=== PATIENT | female | born 1960 | race Caucasian/White ===

== ENCOUNTER 2017-03-04 11:55 | Outpatient (CLI) | payer MEDICARE ==
--- NOTE | 2017-03-04 15:36 | CT ---
CT OF CHEST PERFORMED WITHOUT CONTRAST ENHANCEMENT: HISTORY: Followup of pulmonary nodule. COMPARISON: PET scan examination 07/04/14 as well as 10/06/15. Also, CT chest examinations of 09/20/14, 09/20/15, , and 09/04/16. Review is also made of a previous lung biopsy. FINDINGS: The ground-glass opacity within the left lower lobe is slightly denser in appearance as compared to the previous 2 examinations which may indicate there is an early semisolid component to this. It is difficult to measure but it probably measures 5 mm in short axis dimension. There is a stable appr oximately 2-3 nodular density on axial image 40 within the left lung base. The ill-defined soft tissue nodule within the right lower lobe is somewhat difficult to accurately d efine the margins. The best attempt to simulate the previous measurements show this lesion to measu re approximately 19 mm AP x 21 mm in transverse dimension which represents a slight interval increas e in size. There is a tiny area of ground-glass nodularity adjacent to the major fissure in the rig ht lung axial image 27 which is stable as compared to the prior examination and a minimal area of gr ound-glass density seen on axial image 24 in the posterior segment of the right upper lobe also stab le. There is no significant mediastinal or hilar lymphadenopathy. There is no significant axillary adenopathy seen. Visualized liver parenchyma shows no focal abnormalities. There is a hypodensity within the right k idney which is stable and probably represents a cyst. There is also a nonobstructing punctate right renal calculus present. The right and left adrenal glands are normal. IMPRESSION: 1. Very slight interval increase in size of the right lower lobe ill-defined nodular density. This has been previously biopsied. 2. Small ground-glass opacity within the left lower lobe shows subtle increase in overall density a s compared to the prior exam. Other findings appear essentially stable. POS: [facility]
== END 2017-03-04 11:56 | disposition home or self-care (01) ==
LOC: CT 11:55
PROVIDERS: ATTEND Internal Medicine Critical Care Medicine
DX: R91.1 Solitary pulmonary nodule (principal); R91.8 Other nonspecific abnormal finding of lung field
CPT/HCPCS: 71250

== ENCOUNTER 2017-03-31 12:00 | Outpatient (CLI) | payer MEDICARE ==
--- NOTE | 2017-04-01 10:47 | PET ---
NUCLEAR MEDICINE FDG PET CT (Positron Emission Tomography) DATE: 03/31/2017 HISTORY: A 56-year-old female with growing right lower lobe solitary pulmonary mass. Dr. Morales discussed the findings by telephone with Dr. Platt at 10:06 a.m. on 04/01/2017. COMPARISON: 10/06/2015 TECHNIQUE: IV injection F-18 Fluorodeoxyglucose (FDG) dose: 10.9 mCi PET and attenuation-correction CT performed from skull base to proximal thighs. FINDINGS: SUV (standard uptake value) numbers given are maximum SUV's: The enlarging lesion in the posterobasilar segment of the right lower lobe, which was previously not hypermetabolic (prior SUV 2.3), is now hypermetabolic (current SUV 5.2). There is no abnormal hypermetabolic activity elsewhere in the chest (including mediastinum and edgard) , neck, abdomen, or pelvis. IMPRESSION: 1. The previously nonhypermetabolic right lower lobe pulmonary mass has now become hypermetabolic. 2. One possibility is that this may have previously been a low grade primary malignancy, such as br onchoalveolar cell carcinoma, which has now become higher grade tumor. 3. No evidence of metastatic disease. CODE CR JN R POS: [facility]
== END 2017-03-31 12:01 | disposition home or self-care (01) ==
LOC: PET 12:00
PROVIDERS: ATTEND Internal Medicine Critical Care Medicine
DX: R91.1 Solitary pulmonary nodule (principal); R91.8 Other nonspecific abnormal finding of lung field
CPT/HCPCS: 78815; A9552

== ENCOUNTER 2017-06-23 05:42 | Inpatient (IN) | payer MEDICARE ==
[2017-06-22 13:01] VITALS: BMI 31.1
[2017-06-23] MEDS ORDERED: CEFAZOLIN/Water 2 GM/20 ML SYRINGE ONE (06:16)
[2017-06-23] MEDS ORDERED: Fentanyl 100 MCG/2 ML VIAL ONE ×3 (06:53→10:16)
[2017-06-23] MEDS ORDERED: Midazolam HCl 2 mg/2 ml Vial ONE ×2 (06:53)
[2017-06-23 07:03] LABS: Anion Gap 13 mmol/L (10-20); BUN (Urea Nitrogen) 22 mg/dL (9.8-20.1); Calc. Creatinine Clearance 89 mL/min (70-130); Calcium 10.1 mg/dL (7.8-10.44); Carbon Dioxide 25 mmol/L (22-29); Chloride 104 mmol/L (98-107); Estimated GFR-MDRD 72; Glucose 120 mg/dL (70-105); Potassium 3.6 mmol/L (3.5-5.1); Sodium 138 mmol/L (136-145)
[2017-06-23 07:12] LABS: #Basophils 0.1 thou/uL (0.0-0.2); #Eosinphils 0.1 thou/uL (0.0-0.7); #Lymphocytes 2.7 thou/uL (1.20-3.40); #Monocytes 0.5 thou/uL (0.11-0.59); #Neutrophils 2.7 thou/uL (1.40-6.50); %Basophils 0.9 % (0.0-1.0); %Eosinophils 1.7 % (0.0-10.0); %Lymphocytes 44.2 % (21.0-51.0); %Neutrophils 45.3 % (42.0-75.0); Hemoglobin 13.7 g/dL (12.0-16.0); Mean Corpuscular HGB CONC 35.4 g/dL (32.0-36.0); Mean Corpuscular Hemoglobin 34.2 pg (27.0-31.0); Mean Corpuscular Volume 96.5 fl (81.0-99.0); Mean Platelet Volume 9.2 fL (7.4-10.4); Platelet Count 263 thou/uL (130-400); RBC Distribution Width 12.6 % (11.5-14.5); Red Blood Cell (RBC) Count 4.01 mill/uL (4.20-5.40); White Blood Cell (WBC) Count 6.1 thou/uL (4.8-10.8)
--- NOTE | 2017-06-23 09:47 | OP ---
DATE OF PROCEDURE: 06/23/2017 PREOPERATIVE DIAGNOSIS: Right lower lobe lung mass. POSTOPERATIVE DIAGNOSIS: Right lower lobe lung mass. PROCEDURES PERFORMED: Right thoracotomy with right lower lobectomy and mediastinal lymph node dissec tion. SURGEON: Otis Giraldo M.D. ANESTHESIA: General endotracheal. ESTIMATED BLOOD LOSS: Less than 50 mL DRAINS: A 32-Vietnamese chest tubes x2. SPECIMENS: Right lower lobe, levels 7 and 8 lymph nodes. PROCEDURE IN DETAIL: After consent was obtained, the patient was brought to the operating room and p laced in the supine position on the operating room table. Appropriate anesthetic monitor was placed and general endotracheal anesthesia induced. A left radial arterial line was placed. The patient wa s placed in right lateral decubitus position. Joints were appropriately padded. SCDs were used. Right chest wall was prepped and draped in usual sterile fashion. Posterolateral thoracotomy incisio n was made. Dissection down the level to the fifth interspace was obtained with electrocautery. The fifth interspace was entered. The lung was deflated and we had good exposure. Single lung ventilat ion was then performed with good oxygen saturation. Dissection was begun at the hilum. The anterior fissure was completed with electrocautery. Posterio r fissure was completed with a MICHAEL stapler. The inferior pulmonary ligament was released and there w as no level 9 lymph node. The hilum was then released and the level 7 and level 8 lymph nodes were t aken. The pulmonary vein was divided with a vascular stapler. Two separate pulmonary arterial branc hes to the lower lobe were divided with a vascular stapler. The bronchus to the lower lobe was then isolated and clamped with a MICHAEL stapler. The middle and upper lobe were inflated and inflated nicely . Stapler was fired. The specimen removed. The bronchial stump was tested under 40 cm of pressure and was watertight. The chest was copiously irrigated. A 32-Vietnamese chest tubes x2 were placed to se cure the skin with silk suture. Ribs were reapproximated with #1 Vicryl. The upper and middle lobes were reinflated and filled nicely. The pericostal sutures were then tied. Wounds were irrigated an d closed in multiple layers, and Dermabond applied to the skin. The patient tolerated the procedure well, was awakened, extubated, and transferred to the recovery room in stable condition.
[2017-06-23] MEDS ORDERED: Fentanyl/Bupivacaine 250 ML in Premix Bag 1 BAG EPIDURAL SCH (10:30)
[2017-06-23] MEDS ORDERED: Promethazine HCl 25 MG/ML VIAL IM PRN ×2 (10:30→12:27)
[2017-06-23] MEDS ORDERED: Naloxone HCl 0.4 mg/ml Vial IV PRN (10:30)
[2017-06-23] MEDS ORDERED: Zolpidem Tartrate 5 MG TAB PO PRN (10:30)
[2017-06-23] MEDS ORDERED: diphenhydrAMINE 25 MG CAP PO PRN (10:30)
[2017-06-23] MEDS ORDERED: Bupivacaine 0.25% 10 ML VIAL EPIDURAL PRN (10:30)
[2017-06-23] MEDS ORDERED: Naloxone HCl 0.4 mg/ml Vial IVP PRN (10:30)
[2017-06-23] MEDS ORDERED: HYDROcodone/Acetaminophen 5/325 mg Tablet PO PRN ×4 (10:30→12:05)
[2017-06-23] MEDS ORDERED: Eucerin (Mineral Oil/Petrolatum,White) 30 gm Jar TOP PRN (10:30)
[2017-06-23] MEDS ORDERED: diphenhydrAMINE 50 MG/ML VIAL IVP PRN (10:30)
[2017-06-23] MEDS ORDERED: diphenhydrAMINE 50 MG/ML VIAL IM PRN (10:30)
[2017-06-23] MEDS ORDERED: Ondansetron HCl/PF 4 MG/2 ML Vial IVP PRN ×3 (10:30→12:27)
[2017-06-23] MEDS ORDERED: Promethazine HCl 25 MG SUPP PR PRN (10:30)
[2017-06-23] MEDS ORDERED: ePHEDrine/0.9% NaCl/PF SYRINGE 50 mg/10 ml IV SCH (10:35)
[2017-06-23] MEDS ORDERED: ePHEDrine/0.9% NaCl/PF SYRINGE 50 mg/10 ml ONE ×2 (10:39→14:03)
--- NOTE | 2017-06-23 10:52 | RAD ---
PORTABLE FRONTAL CHEST RADIOGRAPH: DATE: 06/23/17. COMPARISON: 10/25/15. HISTORY: Evaluate chest following thoracotomy. FINDINGS: Cervical spine hardware is present. Two chest tubes overlie the right hemithorax laterally and infer iorly. There are postoperative clips in the infrahilar region on the right. No pneumothorax noted. No pleural fluid or lobar consolidation. IMPRESSION: No acute findings POS: [facility]
[2017-06-23] MEDS ORDERED: Phenylephrine 10 MG/NS 250 ML 250 ML IVPB PRN (12:05)
[2017-06-23] MEDS ORDERED: hydrALAZINE 20 MG/ML VIAL SLOW IVP PRN (12:05)
[2017-06-23] MEDS ORDERED: traMADol HCl 50 MG TAB PO PRN (12:05)
[2017-06-23] MEDS ORDERED: Promethazine HCl 25 MG/ML VIAL SLOW IVP PRN (12:27)
[2017-06-23] MEDS ORDERED: FLU VACC QS2017-18 36 mo. & older 0.5 ML SYRINGE IM ONE (14:00)
[2017-06-23] MEDS ORDERED: PROPOFOL 200 MG/20 ML VIAL ONE (14:03)
[2017-06-23] MEDS ORDERED: Glycopyrrolate 0.2 MG/ML 5 ML SYRINGE ONE (14:03)
[2017-06-23] MEDS ORDERED: Ketorolac Tromethamine 30 MG/ML VIAL ONE (14:03)
[2017-06-23] MEDS ORDERED: Lidocaine 1% PF 5 ML VIAL ONE (14:03)
--- NOTE | 2017-06-23 15:33 | CON ---
DATE OF CONSULTATION: 06/23/2017 HISTORY OF PRESENT ILLNESS: Ms. Puja Maurer is a 57-year-old female. We have been following a density in the right lower lobe. PET imaging has shown an increase in the uptake on PET imaging compared to past PET images. We tried a CT guided biopsy for this lesion in the past and she had an instant massive hemorrhage with the first biopsy and almost led to respiratory arrest. We subsequently followed this with slow growth and she ultimately agreed to evaluation for resection. She has undergone a right lower lobectomy today. She has a normal FEV1 and a normal FVC on PFTs leading up to this admission. Past medical history is remarkable for an MRI that showed a frontal lesion that was evaluated by Neurosurgery. I believe she told me that this is felt to be an old hemorrhage. Follow up MRI showed no change in this abnormality. PAST MEDICAL AND SURGICAL HISTORY: 1. Remarkable for nephrolithiasis. 2. Right shoulder basal cell carcinoma, resected. 3. History of atrial fibrillation. 4. History of hypertension. 5. Status post hysterectomy. 6. History of cervical fusion. 7. History of an appendectomy. SOCIAL HISTORY: She is nonsmoker, nondrinker, no drug user. ALLERGIES: She reports allergies to CODEINE, NIACIN, and SULFA. FAMILY HISTORY: Negative for lung disease at an early age. PHYSICAL EXAMINATION: GENERAL: She was evaluated in the recovery room. She is in no distress. She denied having any pain. VITAL SIGNS: Blood pressure 138/76, pulse is 80, respiratory rate 18. HEENT: Pupils were equal. Sclerae is anicteric. Extraocular movements are full. NECK: Supple, without lymphadenopathy. LUNGS: Clear anteriorly and laterally. HEART: Regular rhythm. ABDOMEN: Soft and nontender. EXTREMITIES: Without asymmetry. LABORATORY DATA AND IMAGING: White count 6.1, hemoglobin 13.7, platelets 263. Sodium 138, potassium 3.6, chloride 104, bicarbonate 25, BUN 22, creatinine 0.8. Chest radiograph shows no pneumothorax. IMPRESSION: Status post lobectomy for a slowly enlarging density on chest CT that recently showed an increase in PET uptake. Await pathology. She appears to be clinically stable at this time. Time spent 70 min. 50% of the time spent on unit MTDD
[2017-06-23] MEDS: Sodium Chloride 0.9% 1,000 ML IV SCH ×2 (15:41→23:14)
[2017-06-23] MEDS: Ketorolac Tromethamine 30 MG/ML VIAL IVP SCH ×3 (15:42→23:23)
[2017-06-23] MEDS: CEFAZOLIN/Water 2 GM/20 ML SYRINGE SLOW IVP SCH ×2 (15:45→23:16)
[2017-06-23] MEDS ORDERED: Morphine 2 MG/ML SYRINGE SLOW IVP PRN (20:21)
[2017-06-23] MEDS: hydrOXYzine 25 MG TAB PO SCH (20:54)
[2017-06-23] MEDS: Ezetimibe 10 MG TAB PO SCH (20:56)
[2017-06-23] MEDS: Aspirin 81 mg Enteric Coated Tablet PO SCH (20:56)
[2017-06-23] MEDS: tiZANidine HCl 4 MG TAB PO SCH (20:57)
[2017-06-23] MEDS: Vitami E (Dl,Tocopheryl Acet) 400 UNITS CAP PO SCH (20:57)
[2017-06-23] MEDS ORDERED: tiZANidine HCl 4 MG TAB PO PRN (21:00)
[2017-06-23] MEDS: Melatonin 3 MG TAB PO SCH (21:30)
[2017-06-23] MEDS: traMADol HCl 50 MG TAB PO PRN (22:30)
[2017-06-23] MEDS ORDERED: Furosemide 40 MG/4 ML VIAL SLOW IVP SCH (23:15)
[2017-06-24] MEDS: hydrOXYzine 25 MG TAB PO SCH ×5 (00:12→17:52)
[2017-06-24] MEDS: Ketorolac Tromethamine 30 MG/ML VIAL IVP SCH ×3 (05:15→17:52)
[2017-06-24 06:01] LABS: #Eosinphils 0.1 thou/uL (0.0-0.7); #Lymphocytes 1.9 thou/uL (1.20-3.40); #Monocytes 0.7 thou/uL (0.11-0.59); #Neutrophils 7.1 thou/uL (1.40-6.50); %Basophils 0.3 % (0.0-1.0); %Eosinophils 0.5 % (0.0-10.0); %Lymphocytes 19.4 % (21.0-51.0); %Monocytes 6.9 % (0.0-10.0); %Neutrophils 72.8 % (42.0-75.0); Hemoglobin 12.5 g/dL (12.0-16.0); Mean Corpuscular HGB CONC 32.8 g/dL (32.0-36.0); Mean Platelet Volume 8.9 fL (7.4-10.4); Platelet Count 221 thou/uL (130-400); RBC Distribution Width 12.9 % (11.5-14.5); Red Blood Cell (RBC) Count 3.79 mill/uL (4.20-5.40); White Blood Cell (WBC) Count 9.8 thou/uL (4.8-10.8)
[2017-06-24 06:31] LABS: Anion Gap 12 mmol/L (10-20); BUN (Urea Nitrogen) 16 mg/dL (9.8-20.1); Calc. Creatinine Clearance 83 mL/min (70-130); Calcium 8.5 mg/dL (7.8-10.44); Carbon Dioxide 22 mmol/L (22-29); Chloride 107 mmol/L (98-107); Estimated GFR-MDRD 66; Glucose 124 mg/dL (70-105); Potassium 4.2 mmol/L (3.5-5.1); Sodium 137 mmol/L (136-145)
[2017-06-24] MEDS: CEFAZOLIN/Water 2 GM/20 ML SYRINGE SLOW IVP SCH (07:21)
[2017-06-24] MEDS ORDERED: Stress 600 With Zinc 1 TAB PO SCH (09:00)
[2017-06-24] MEDS: Folic Acid 1 MG TAB PO SCH (09:04)
[2017-06-24] MEDS: PARoxetine 20 MG TAB PO SCH (09:04)
[2017-06-24] MEDS: Pioglitazone HCl 15 MG TAB PO SCH (09:04)
[2017-06-24] MEDS: Loratadine 10 MG TAB PO SCH (09:04)
[2017-06-24] MEDS: Hydrochlorothiazide 25 MG TAB PO SCH (09:04)
[2017-06-24] MEDS: Lisinopril 5 MG TAB PO SCH (09:07)
--- NOTE | 2017-06-24 10:18 | RAD ---
SINGLE VIEW OF THE CHEST: Comparison: 06-23-17 History: Status post thoracotomy. FINDINGS: Single view of the chest shows a normal sized cardiomediastinal silhouette. There are right sided fatimah st tubes. No obvious pneumothorax is appreciated. There is a small right pleural effusion. The cardio mediastinal silhouette is normal in size. Hardware is seen in the spine. IMPRESSION: 1. Right sided chest tube without evidence of pneumothorax. 2. Small right pleural effusion. POS: [facility]
--- NOTE | 2017-06-24 10:20 | PRG ---
DATE OF SERVICE: 06/24/2017 SUBJECTIVE: Ms. Maurer says she has minimal discomfort. She has bilateral equal breath sounds. She is not wheezing. White count is 9.8, hemoglobin 12.5, platelets 221. Electrolytes are normal. IMPRESSION: Status post lobectomy for a slowly enlarging lung density. Pathology is pending. In my opinion, she is stable to move out of the ICU. She does not have an air leak. Her pain is deirdre sonably well controlled.
[2017-06-24] MEDS: tiZANidine HCl 4 MG TAB PO SCH (20:41)
[2017-06-24] MEDS: Vitami E (Dl,Tocopheryl Acet) 400 UNITS CAP PO SCH (20:41)
[2017-06-24] MEDS: Melatonin 3 MG TAB PO SCH (20:42)
[2017-06-24] MEDS: Aspirin 81 mg Enteric Coated Tablet PO SCH (20:42)
[2017-06-24] MEDS: Ezetimibe 10 MG TAB PO SCH (20:42)
[2017-06-25] MEDS: Ketorolac Tromethamine 30 MG/ML VIAL IVP SCH ×2 (00:19→05:42)
[2017-06-25] MEDS: hydrOXYzine 25 MG TAB PO SCH ×4 (00:20→17:44)
[2017-06-25] MEDS: traMADol HCl 50 MG TAB PO PRN ×2 (08:20→17:44)
[2017-06-25] MEDS: Folic Acid 1 MG TAB PO SCH (08:21)
[2017-06-25] MEDS: Pioglitazone HCl 15 MG TAB PO SCH (08:21)
[2017-06-25] MEDS: PARoxetine 20 MG TAB PO SCH (08:22)
[2017-06-25] MEDS: Loratadine 10 MG TAB PO SCH (08:22)
[2017-06-25] MEDS: Lisinopril 5 MG TAB PO SCH (08:22)
--- NOTE | 2017-06-25 08:30 | RAD ---
PORTABLE UPRIGHT CHEST 1 VIEW: HISTORY: A 57-year-old female status post thoracotomy. COMPARISON: 06/24/17. FINDINGS: Monitor leads overlie the chest. Persistent right chest tubes and right subcutaneous emphysema with some diffuse pulmonary parenchymal opacity changes in the right mid and lower lung zone which appear to be progressive when compared to the 06/24 study and certainly new when compared to the prior 06/23 s tudy. No significant pneumothorax. The left chest is clear. IMPRESSION: Two right chest tubes in place with subcutaneous emphysema, stable. Progressive heterogeneous opacit y changes of the right mid and particularly the right lower lung zone raising concern for the possibi lity of some developing pneumonia and/or atelectasis. Continued short-term followup. Stable left ch est. POS: [facility]
[2017-06-25] MEDS: fentaNYL Citrate/PF 1,250 MCG, Bupivacaine 25 ML in Sodium Chloride 0.9% 250 ML 200 ML EPIDURAL SCH (08:45)
[2017-06-25] MEDS: Acetaminophen 325 MG TAB PO PRN ×2 (09:30→21:07)
[2017-06-25] MEDS: Stress 600 With Zinc 1 TAB PO SCH (10:28)
--- NOTE | 2017-06-25 10:55 | PRG ---
DATE OF SERVICE: 06/25/2017 Puja Maurer has no complaints except for pain with coughing as expected with a chest tube. PHYSICAL EXAMINATION: VITAL SIGNS: She is afebrile, respiratory rate is 20, oximetry is 94 on a liter and a half. LUNGS: Lungs are clear. CARDIOVASCULAR: Regular rhythm. ABDOMEN: Soft. Chest radiograph is hazy at the right base. IMPRESSION: Mucous plugging secondary to having 2 chest tubes, splinting and recent thoracotomy. PLAN: Tressa johnsons.
[2017-06-25] MEDS: Vitami E (Dl,Tocopheryl Acet) 400 UNITS CAP PO SCH (20:56)
[2017-06-25] MEDS: Ezetimibe 10 MG TAB PO SCH (20:56)
[2017-06-25] MEDS: Aspirin 81 mg Enteric Coated Tablet PO SCH (20:56)
[2017-06-25] MEDS: Melatonin 3 MG TAB PO SCH (20:56)
[2017-06-25] MEDS: tiZANidine HCl 4 MG TAB PO SCH (20:58)
[2017-06-26] MEDS: hydrOXYzine 25 MG TAB PO SCH ×5 (02:22→23:07)
[2017-06-26] MEDS: traMADol HCl 50 MG TAB PO PRN ×3 (05:35→23:07)
[2017-06-26] MEDS ORDERED: Furosemide 40 MG/4 ML VIAL SLOW IVP SCH (08:00)
--- NOTE | 2017-06-26 08:01 | RAD ---
CHEST 1 VIEW: Date: 06/26/17 HISTORY: Chest surgery. Follow-up. COMPARISON: 06/25/17. FINDINGS: Cardiac silhouette is magnified by projection and now more obscured by worsening infiltrate at the ri ght base. Pulmonary vasculature is upper limits of normal with diffuse reticulonodular interstitial p rominence. Mediastinum remains midline. Right thoracostomy tubes remain in place without residual pne umothorax apparent. grooming assistant leads overlie the chest. IMPRESSION: Further consolidation at the right lung base. POS: [facility]
[2017-06-26] MEDS: PARoxetine 20 MG TAB PO SCH (09:21)
[2017-06-26] MEDS: Loratadine 10 MG TAB PO SCH (09:22)
[2017-06-26] MEDS: Folic Acid 1 MG TAB PO SCH (12:17)
[2017-06-26] MEDS: Lisinopril 5 MG TAB PO SCH (12:17)
[2017-06-26] MEDS: Stress 600 With Zinc 1 TAB PO SCH (12:17)
[2017-06-26] MEDS: Pioglitazone HCl 15 MG TAB PO SCH (12:20)
--- NOTE | 2017-06-26 12:48 | PRG ---
DATE OF SERVICE: 06/26/2017 SUBJECTIVE: Ms. Maurer' pathology still not back yet. She has one chest tube out, still has anot her one to water seal. OBJECTIVE: VITAL SIGNS: She is afebrile, heart rate 116, respiratory rate 20, oximetry is 94, blood pressure 15 4/73. LUNGS: Clear. CARDIOVASCULAR: Regular rhythm. Chest radiograph still shows haziness at the right base. I have encouraged her friend to get her ou t of bed, start walking. If her radiograph continues to progress, we may have to consider culture an d antibiotics, although clinically she does not look like she is developing a pneumonia and check CBC with manual differential in the morning. She is not coughing and only coughs when she does spiromet ry.
[2017-06-26] MEDS: Hydrochlorothiazide 25 MG TAB PO SCH (14:05)
[2017-06-26] MEDS: Acetaminophen 325 MG TAB PO PRN (14:09)
[2017-06-26] MEDS: Ezetimibe 10 MG TAB PO SCH (21:41)
[2017-06-26] MEDS: Aspirin 81 mg Enteric Coated Tablet PO SCH (21:41)
[2017-06-26] MEDS: Melatonin 3 MG TAB PO SCH (21:42)
[2017-06-26] MEDS: Vitami E (Dl,Tocopheryl Acet) 400 UNITS CAP PO SCH (21:42)
[2017-06-26] MEDS: tiZANidine HCl 4 MG TAB PO SCH (21:42)
[2017-06-27] MEDS: fentaNYL Citrate/PF 1,250 MCG, Bupivacaine 25 ML in Sodium Chloride 0.9% 250 ML 200 ML EPIDURAL SCH (00:58)
[2017-06-27 05:20] LABS: Band 4 % (5-11); Eosinophils 2 % (0-10); Hemoglobin 10.7 g/dL (12.0-16.0); Lymphocytes 16 % (21-51); MDiff Complete? YES; Mean Corpuscular Hemoglobin 32.6 pg (27.0-31.0); Mean Corpuscular Volume 98.9 fl (81.0-99.0); Mean Platelet Volume 8.6 fL (7.4-10.4); Monocytes 8 % (0-10); Neutrophil 70 % (42-75); Platelet Count 228 thou/uL (130-400); RBC Distribution Width 12.4 % (11.5-14.5); Red Blood Cell (RBC) Count 3.28 mill/uL (4.20-5.40); White Blood Cell (WBC) Count 5.8 thou/uL (4.8-10.8)
[2017-06-27] MEDS: hydrOXYzine 25 MG TAB PO SCH ×3 (05:28→18:06)
--- NOTE | 2017-06-27 09:05 | RAD ---
SINGLE VIEW OF THE CHEST: COMPARISON: 06/26/17. HISTORY: Status post thoracotomy. FINDINGS: A single view of the chest shows a cardiomediastinal silhouette which is upper limits of normal in si ze. There is elevation f the right hemidiaphragm. There are 2 right-sided chest tubes without evide nce of pneumothorax. There appears to be a small right pleural effusion with adjacent atelectasis. IMPRESSION: Small right pleural effusion with adjacent atelectasis. POS: [facility]
[2017-06-27] MEDS: Pioglitazone HCl 15 MG TAB PO SCH (10:14)
[2017-06-27] MEDS: Folic Acid 1 MG TAB PO SCH (10:15)
[2017-06-27] MEDS: Loratadine 10 MG TAB PO SCH (10:15)
[2017-06-27] MEDS: PARoxetine 20 MG TAB PO SCH (10:16)
[2017-06-27] MEDS: Lisinopril 5 MG TAB PO SCH (10:16)
[2017-06-27] MEDS: Stress 600 With Zinc 1 TAB PO SCH (10:17)
[2017-06-27] MEDS: Hydrochlorothiazide 25 MG TAB PO SCH (10:22)
[2017-06-27] MEDS: Morphine 5 MG/ML SYRINGE SLOW IVP PRN (14:49)
--- NOTE | 2017-06-27 18:05 | PRG ---
DATE OF SERVICE: 06/27/2017 SUBJECTIVE: Puja Maurer has no complaints. OBJECTIVE; VITAL SIGNS: She is afebrile, heart rate is 89, respiratory rate 18. CHEST: She did have some pain earlier when she rolled over in bed when I walked into the room. This is acute pleuritic pain that she held her breath, it went away. She still has one chest tube in the waterseal. She is given low dose morphine for this. Hopefully this will help. Lungs are clear. 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 The lymph nodes were all negative. I have discussed with Oncology and I will be happy to see her as an outpatient. IMPRESSION: Pulmonary lymphoma, resected. PLAN: Continue per Cardiothoracic Surgery. Hopefully, she will be home in a day or two.
[2017-06-27] MEDS: Melatonin 3 MG TAB PO SCH (21:46)
[2017-06-27] MEDS: tiZANidine HCl 4 MG TAB PO SCH (21:46)
[2017-06-27] MEDS: Aspirin 81 mg Enteric Coated Tablet PO SCH (21:46)
[2017-06-27] MEDS: Ezetimibe 10 MG TAB PO SCH (21:46)
[2017-06-27] MEDS: Vitami E (Dl,Tocopheryl Acet) 400 UNITS CAP PO SCH (21:47)
[2017-06-27] MEDS: traMADol HCl 50 MG TAB PO PRN (21:50)
[2017-06-28] MEDS: hydrOXYzine 25 MG TAB PO SCH ×4 (00:16→18:06)
[2017-06-28] MEDS: Morphine 5 MG/ML SYRINGE SLOW IVP PRN ×2 (01:13→19:53)
[2017-06-28 05:49] LABS: Band 2 % (5-11); Eosinophils 2 % (0-10); Lymphocytes 23 % (21-51); MDiff Complete? YES; Mean Corpuscular HGB CONC 32.6 g/dL (32.0-36.0); Mean Corpuscular Hemoglobin 32.8 pg (27.0-31.0); Mean Platelet Volume 9.6 fL (7.4-10.4); Monocytes 8 % (0-10); Neutrophil 65 % (42-75); Platelet Count 240 thou/uL (130-400); RBC Distribution Width 12.7 % (11.5-14.5); Red Blood Cell (RBC) Count 3.65 mill/uL (4.20-5.40); White Blood Cell (WBC) Count 8.1 thou/uL (4.8-10.8)
--- NOTE | 2017-06-28 08:13 | RAD ---
SINGLE VIEW OF THE CHEST: COMPARISON: 06/27/17. HISTORY: Thoracotomy. FINDINGS: A single view of the chest shows a normal size cardiomediastinal silhouette. There are 2 right-sided chest tubes. There is a persistent opacity in the right lung base which may represent a pleural eff usion and adjacent atelectasis. Hardware is seen in the cervical spine. IMPRESSION: Stable small right pleural effusion with adjacent atelectasis versus infiltrate. POS: [facility]
[2017-06-28] MEDS: Lisinopril 5 MG TAB PO SCH (09:18)
[2017-06-28] MEDS: Loratadine 10 MG TAB PO SCH (09:19)
[2017-06-28] MEDS: PARoxetine 20 MG TAB PO SCH (09:20)
[2017-06-28] MEDS: Pioglitazone HCl 15 MG TAB PO SCH (09:20)
[2017-06-28] MEDS: Stress 600 With Zinc 1 TAB PO SCH (09:21)
[2017-06-28] MEDS: traMADol HCl 50 MG TAB PO PRN ×2 (10:26→16:44)
[2017-06-28] MEDS: Folic Acid 1 MG TAB PO SCH (10:57)
[2017-06-28] MEDS ORDERED: Bisacodyl 10 MG SUPP PR PRN (18:52)
--- NOTE | 2017-06-28 19:39 | PRG ---
DATE OF SERVICE: 06/28/2017 SUBJECTIVE: Ms. Maurer has no complaints. Her chest tube is out. Her epidural is out. She had no bowel movement since she has been here. Dulcolax was just written by me. OBJECTIVE: VITAL SIGNS: She is afebrile, heart rate is 107, respiratory rate 18, temperature is 98.3. Blood pr essure this afternoon is elevated. LUNGS: Remarkable for equal breath sounds. HEART: Regular rhythm. ABDOMEN: Soft. She has no tenderness. Chest radiographs: Hazy at the right base. I suspect this is small bloody effusion. She has nothing to suggest that she has pneumonia. IMPRESSION: Status post lobectomy for a B-cell lymphoma. Apparently, there are still some special s tains pending. I have already discussed her with Oncology. We will be happy to see her as an outpat ient.
[2017-06-28] MEDS: tiZANidine HCl 4 MG TAB PO SCH (19:53)
[2017-06-28] MEDS: Vitami E (Dl,Tocopheryl Acet) 400 UNITS CAP PO SCH (19:53)
[2017-06-28] MEDS: Ezetimibe 10 MG TAB PO SCH (19:53)
[2017-06-28] MEDS: Melatonin 3 MG TAB PO SCH (19:54)
[2017-06-28] MEDS: Aspirin 81 mg Enteric Coated Tablet PO SCH (19:54)
[2017-06-29] MEDS: Morphine 5 MG/ML SYRINGE SLOW IVP PRN (01:25)
[2017-06-29] MEDS: hydrOXYzine 25 MG TAB PO SCH ×3 (01:26→11:42)
[2017-06-29 06:01] LABS: Band 7 % (5-11); Eosinophils 2 % (0-10); Hemoglobin 12.4 g/dL (12.0-16.0); Lymphocytes 14 % (21-51); MDiff Complete? YES; Mean Corpuscular Hemoglobin 32.4 pg (27.0-31.0); Mean Corpuscular Volume 98.3 fl (81.0-99.0); Mean Platelet Volume 9.4 fL (7.4-10.4); Monocytes 7 % (0-10); Neutrophil 69 % (42-75); Platelet Count 240 thou/uL (130-400); RBC Distribution Width 12.5 % (11.5-14.5); RBC Morphology Normal; Red Blood Cell (RBC) Count 3.84 mill/uL (4.20-5.40)
[2017-06-29] MEDS ORDERED: Milk Of Magnesia 30 ML UDCUP PO SCH (07:45)
[2017-06-29] MEDS: Lisinopril 5 MG TAB PO SCH (08:28)
[2017-06-29] MEDS: Hydrochlorothiazide 25 MG TAB PO SCH (08:28)
[2017-06-29] MEDS: Stress 600 With Zinc 1 TAB PO SCH (08:28)
[2017-06-29] MEDS: Pioglitazone HCl 15 MG TAB PO SCH (08:28)
[2017-06-29] MEDS: Folic Acid 1 MG TAB PO SCH (08:29)
[2017-06-29] MEDS: Loratadine 10 MG TAB PO SCH (08:29)
[2017-06-29] MEDS: traMADol HCl 50 MG TAB PO PRN (08:29)
[2017-06-29] MEDS: PARoxetine 20 MG TAB PO SCH (08:29)
[2017-06-29 09:10] LABS: Fungus Stain Final report (.)
[2017-06-29] MEDS: Acetaminophen 325 MG TAB PO PRN (09:55)
--- NOTE | 2017-06-29 11:10 | RAD ---
PORTABLE CHEST: HISTORY: Postop thoracotomy. COMPARISON: 06/28/17. FINDINGS: Right side chest tube has been removed. There is right chest subcutaneous emphysema again noted. Ri ght basilar atelectasis and/or infiltrate. Left lung appears clear. No pneumothorax or other acute process. IMPRESSION: Right chest tube has been removed. There continues to be some right basilar opacity, probably atelec tasis and right subcutaneous emphysema. POS: [facility]
[2017-06-29 11:17] VITALS: BP 138/86; TEMP 98.5
--- NOTE | 2017-06-29 12:39 | PRG ---
DATE OF SERVICE: 06/29/2017 Puja Maurer has no complaints. She is ambulating in the james. She has had a good bowel movement . PHYSICAL EXAMINATION: VITAL SIGNS: Reviewing her vital signs, she has had no fever. She has a temperature 99.3 which I rodriguez spect this is related atelectasis, heart rate 94 to 107, respiratory rate 18, oximetry is 90 on room air, blood pressure is a little elevated at 177/83, earlier 138/86 at 11 o'clock this morning. LUNGS : She has no rhonchi. IMPRESSION: Status post lobectomy for B cell lymphoma. PLAN: Follow up in a month with a chest radiograph and referral to oncology for followup.
--- NOTE | 2017-06-29 18:21 | DIS ---
DATE OF ADMISSION: 06/23/2017 DATE OF DISCHARGE: 06/29/2017 DIAGNOSIS: Right lower lobe mass -- status post right lower lobectomy with pathology returning as a 2.5 cm B-cell lymphoma. DESCRIPTION OF HOSPITAL STAY: Ms. Maurer was admitted and underwent elective right lower lobectom y. She has done well. Pathology is as above. She has been discharged to home in good condition to follow up with me in [address] Platt in 2 weeks.
--- NOTE | 2017-06-30 13:48 | HP ---
HISTORY OF PRESENT ILLNESS: Ms. Puja Maurer is a 57-year-old woman who is being admitted with a right lower lobe 3 cm mass which recently converted to PET positive. Her FEV1 is 1.2 liters which is 94% predicted. She has no history of chest pain, shortness of breath, hemoptysis, weight loss, audi dice, bone pain or other neurologic symptoms. PAST MEDICAL HISTORY: 1. Hypertension. 2. Irregular heartbeat. 3. Hypercholesterolemia. 4. Diabetes mellitus. 5. Renal stones. 6. Heartburn. 7. Migraines. 8. Depression. PAST SURGICAL HISTORY: 1. Hysterectomy in 1993. 2. x2 in 1985 and 1988. 3. Appendectomy in 2004. 4. Tummy tuck in 1993. 5. Right arm biopsy in 2010. 6. ESWL in 2013. 7. Left ureteroscopy with Dr. Bloom are in 2014. 8. ESWL in 2014. SOCIAL HISTORY: She currently smokes cigarettes. ALLERGIES: BACTRIM, CODEINE, TERBUTALINE and HYDROCODONE. CURRENT MEDICATIONS: 1. Atenolol 50 mg b.i.d. 2. Tizanidine hydrochloride 4 mg t.i.d. p.r.n. 3. Aspirin 81 mg every day. 4. Folic acid 400 mg every day. 5. Vitamin D 1000 units every day. 6. Melatonin 3 mg every day. 7. Garlic 400 every day. PHYSICAL EXAMINATION: VITAL SIGNS: Heart rate is 84, blood pressure is 159/93, height is 5 feet 1 inches, and weight is 16 7 pounds. BMI is 31.57. Oxygen saturation is 97% on room air. HEENT: Sclerae nonicteric. Pupils equal, round bilaterally. NECK: Supple, with no carotid bruit. There is no cervical adenopathy. HEART: Heart rate regular and rhythm. There are no murmurs or rubs. LUNGS: Clear to auscultation bilaterally throughout both the anterior and posterior lung bates. ABDOMEN: Soft and nontender, without mass. EXTREMITIES: There is no edema. VASCULAR: Peripheral pulses, there is palpable carotid, radial, and femoral pulses bilaterally. PSYCHIATRIC: The patient is awake, alert, and oriented to person, place, and time. NEUROLOGIC: Motor exam is grossly intact throughout. ASSESSMENT AND PLAN: This is a pleasant 57-year-old woman with a right lower lobe mass that has been followed and recently converted to PET positive. Due to the patient's mass location, it is impossib le to just do a wedge resection and she is being taken for a right lower lobectomy via thoracotomy.
[2017-07-24 15:24] LABS: Fungus Culture Final report (.)
== END 2017-06-29 15:16 | disposition home or self-care (01) | DRG 165 ==
LOC: SURG A 05:42 → CCU 14:14 → 2NO 06-24 10:52
PROVIDERS: ADMIT Thoracic Surgery (Cardiothoracic Vascular Surgery); ATTEND Thoracic Surgery (Cardiothoracic Vascular Surgery)
PROC: 0BBF0ZZ Excision of Right Lower Lung Lobe, Open Approach (ICD-10-PCS; principal; 2017-06-23)
PROC: 07B70ZX Excision of Thorax Lymphatic, Open Approach, Diagnostic (ICD-10-PCS; 2017-06-23)
PROC: 0W9830Z Drainage of Chest Wall with Drainage Device, Percutaneous Approach (ICD-10-PCS; 2017-06-23)
DX: C34.31 Malignant neoplasm of lower lobe, right bronchus or lung (principal); I48.91 Unspecified atrial fibrillation; I10 Essential (primary) hypertension; Z88.5 Allergy status to narcotic agent; Z88.2 Allergy status to sulfonamides; Z88.8 Allergy status to other drugs, medicaments and biological substances; Z79.82 Long term (current) use of aspirin; E11.9 Type 2 diabetes mellitus without complications; F32.9 Major depressive disorder, single episode, unspecified; E78.2 Mixed hyperlipidemia; K21.9 Gastro-esophageal reflux disease without esophagitis; F17.210 Nicotine dependence, cigarettes, uncomplicated
CPT/HCPCS: 36415; 71045; 80048; 85007; 85025; 85027; 86850; 86900; 86901; 87070; 87102; 87116; 87205; 87206; 88184; 88305; 88309; 88312; 88331; 88332; 88341; 88342; 88360; 94640; J2270; G8978-GP-CK; G8979-GP-CI; J0131; J0360; J1642; J1885; J1940; J2001; J2250; J2704; J3010; J3490; J7050; J7620

== ENCOUNTER 2017-07-01 14:16 | Outpatient (CLI) | payer MEDICARE ==
--- NOTE | 2017-07-01 14:56 | RAD ---
CHEST TWO VIEWS: History: Lung cancer. Chest surgery. Comparison: 06-29-17 FINDINGS: Cardiac silhouette is at upper limits of normal and partially obscured by opacity at the right base a nd pleural fluid that have increased slightly since the prior study. Mediastinum remains midline. Pul monary vasculature is upper limits of normal. Gas overlies the right lateral chest wall. There are po st-operative changes of the cervical spine apparent. IMPRESSION: Slight interval increase in right basilar opacity with the appearance of scarring/atelectasis and ple ural fluid. POS: [facility]
== END 2017-07-01 14:17 | disposition home or self-care (01) ==
LOC: RAD 14:16
PROVIDERS: ATTEND Thoracic Surgery (Cardiothoracic Vascular Surgery)
DX: C34.31 Malignant neoplasm of lower lobe, right bronchus or lung (principal); J98.4 Other disorders of lung
CPT/HCPCS: 71046

== ENCOUNTER 2017-08-04 12:57 | Outpatient (CLI) | payer MEDICARE ==
--- NOTE | 2017-08-04 16:03 | PET ---
NUCLEAR MEDICINE FDG PET CT: HISTORY: Lymphoma of lung. COMPARISON: PET CT 03/31/17. TECHNIQUE: Whole body imaging from the skull base to the thigh was performed after the intravenous administratio n of 10.9 mCi of FDG. FINDINGS: There is prior right lower lobectomy with moderate-size layer pleural effusion. Previously described right lower lobe mass has been surgically removed. No new abnormal lung mass. Thoracotomy changes of the right posterolateral hemithorax are present. There is a faint abnormal area of uptake within the liver with SUV max of 3.8 with a background liver SUV max approximately 3.3. This area is not well seen on the CT examination without contrast. This measures approximately 2.6 cm. No other abnormal areas of radiotracer uptake is appreciated. There is incidental note of a small gr ackle sinus. There are right-sided renal calculi, nonobstructive. No dilated loops of large or small bowel. There is a hypodense area within the spleen which does not have any abnormal FDG uptake. IMPRESSION: 1. Interval right lower lobe lobectomy with layering pleural effusion and no remaining abnormal fluo rodeoxyglucose-avid mass. 2. Focal area of faint increased tracer uptake within the right lobe of the liver measuring 2.6 cm w ith SUV max of 3.8 with background liver having an SUV max of approximately 3.3. Dedicated liver pro tocol CT or MRI is recommended. POS: [facility]
== END 2017-08-04 12:58 | disposition home or self-care (01) ==
LOC: PET 12:57
PROVIDERS: ATTEND Internal Medicine Hematology & Oncology
DX: C85.90 Non-Hodgkin lymphoma, unspecified, unspecified site (principal); J90 Pleural effusion, not elsewhere classified; Z90.2 Acquired absence of lung [part of]
CPT/HCPCS: 78815; A9552

== ENCOUNTER 2018-08-19 21:19 | Emergency (ER) | payer MEDICARE ==
[2018-08-19 22:33] LABS: ALT (SGPT) 26 U/L (8-55); AST (SGOT) 27 U/L (5-34); Albumin 4.6 g/dL (3.5-5.0); Alkaline Phosphatase 114 U/L (40-150); Anion Gap 19 mmol/L (10-20); BUN (Urea Nitrogen) 21 mg/dL (9.8-20.1); Bilirubin, Total 0.6 mg/dL (0.2-1.2); Calc. Creatinine Clearance 0 mL/min (70-130); Calcium 10.3 mg/dL (7.8-10.44); Carbon Dioxide 21 mmol/L (22-29); Chloride 102 mmol/L (98-107); Estimated GFR-MDRD 60; Globulin 3.6 g/dL (2.4-3.5); Glucose 130 mg/dL (70-105); Hemoglobin 15.7 g/dL (12.0-16.0); Mean Corpuscular HGB CONC 33.7 g/dL (32.0-36.0); Mean Corpuscular Hemoglobin 32.1 pg (27.0-31.0); Mean Corpuscular Volume 95.4 fL (78.0-98.0); Mean Platelet Volume 9.6 fL (7.4-10.4); Platelet Count 255 thou/uL (130-400); Potassium 3.4 mmol/L (3.5-5.1); Protein, Total 8.2 g/dL (6.0-8.3); RBC Distribution Width 12.3 % (11.5-14.5); Sodium 139 mmol/L (136-145); White Blood Cell (WBC) Count 15.6 thou/uL (4.8-10.8)
[2018-08-19 22:43] LABS: Band 10 % (5-11); Eosinophils 1 % (0-10); Lymphocytes 4 % (21-51); MDiff Complete? YES; Monocytes 3 % (0-10); Neutrophil 82 % (42-75)
--- NOTE | 2018-08-19 22:54 | CT ---
NONCONTRAST CT HEAD 08/19/18 HISTORY: Syncope. Patient passed out and hyperventilated. Diaphoresis. Unknown time period of loss of consciou sness. COMPARISON: 04/11/10. FINDINGS: There is no evidence of a hemorrhage, acute infarction, mass effect, or midline shift. The ventricula r system is normal in size, shape and position. The visualized paranasal sinuses and mastoid air betina ls are clear. No calvarial fracture is identified. There is minimal right anterior frontal scalp sof t tissue swelling. There has been no additional interval change compared to the study in 2009. IMPRESSION: 1. No acute intracranial abnormalities demonstrated. 2. Minimal right anterior frontal scalp hematoma. No underlying calvarial fracture is seen. POS: [facility]
--- NOTE | 2018-08-19 23:15 | CT ---
NONCONTRAST CT CERVICAL SPINE 08/19/18 HISTORY: Injury. Patient passed out after hyperventilating. Patient hit right sided forehead. COMPARISON: None available. TECHNIQUE: Contiguous axial CT images are obtained through the cervical spine from the skull base to the T2-3 le emy. Sagittal and coronal reformatted images are provided. FINDINGS: There are postsurgical changes related to anterior cervical fusion of the C4 through C7 levels with i ntradiscal prostheses and fusion material noted at these levels. No hardware complication is seen. There are degenerative changes present at the C3-4 level with loss of intervertebral disc height and posterior osteophyte formation. There is only mild encroachment on the ventral aspect of the central spinal canal. No significant neural foraminal narrowing is present. Mild posterior osteophyte formati on with intervertebral disc space narrowing is seen at the C7-T1 level, but there is no significant c entral canal or neural foraminal narrowing. Vertebral body heights are within normal limits. There is no fracture or subluxation involving the ce rvical spine. The interspinous distances are within normal limits. No fracture or subluxation is seen involving the cervical spine. There is straightening of the normal cervical lordotic curvature. The metallic hardware results in artifact limiting evaluation of the prevertebral soft tissues, but p revertebral soft tissues appear grossly within normal limits. There is mild symmetric biapical pleura l scarring. Hypodense nodule is seen in the left lobe of the thyroid gland which measures 1.3 cm. Adjacent calcif ications are present. This is difficult to delineate on the PET scan of 08/04/17, but there is no hy permetabolic activity in this region. However, given that this was not definitively seen on the prior study, thyroid ultrasound is recommended for further evaluation. IMPRESSION: 1. Hypodense nodule left lobe of the thyroid gland with adjacent calcification. Nonemergent thyr oid ultrasound is recommended. 2. Postsurgical and degenerative changes of the cervical spine. 3. No fracture or subluxation involving the cervical spine. POS: [facility]
[2018-08-19 23:16] LABS: Bilirubin Negative (Negative); Blood, Urine Negative (Negative); Clarity CLOUDY (Clear); Glucose, Urine (Dipstick) Negative (Negative); Leukocyte Moderate (Negative); Nitrite Negative (Negative); Protein, Urine (Dipstick) Trace mg/dL (Neg-Trace); Specific Gravity, Urine 1.019 (1.002-1.036); Urobilinogen 0.2 mg/dL (0.2-1.0); pH, Urine 5.5 (5.0-9.0)
[2018-08-19 23:17] LABS: Bacteria/HPF None Seen HPF (None Seen); WBC/HPF 21-50 HPF (0-3)
[2018-08-19 23:19] LABS: Pathc Cast-AUWi Flag 4.62 (0-2.49)
--- NOTE | 2018-08-19 23:22 | RAD ---
PORTABLE AP CHEST X-RAY 08/19/18 HISTORY: Syncopal episode. Nausea and vomiting and diarrhea. COMPARISON: 07/01/17. FINDINGS: The cardiac silhouette and pulmonary vasculature are within normal limits for the portable technique of the study. There has been resolution of the pleural and parenchymal changes at the right lung bas e. There are linear densities seen overlying the medial right chest and greater at the right lung bas e which may be related to areas of scarring. The patient reportedly has history of right lower lobect lis. There is volume loss in the right hemithorax compared to the left. Postsurgical changes related to anterior cervical fusion are partially imaged. There are remote right sided rib fractures and rib deformities likely related to prior postsurgical change. No other interval change. IMPRESSION: Chronic changes right hemithorax likely related to prior postsurgical changes. Linear densities at th e right lung base are presumed to represent areas of scarring. No definite acute cardiopulmonary proc ess is appreciated. POS: [facility]
[2018-08-19 23:24] LABS: Hyaline Casts/LPF 7-10 HYALINE CAST LPF (0-3 Hyaline)
[2018-08-19 23:25] LABS: Crystals/HPF 1+ CA OXALATE HPF (Negative)
--- NOTE | 2018-08-20 12:33 | EKG ---
Test Reason : Blood Pressure : / mmHG Vent. Rate : 065 BPM Atrial Rate : 065 BPM P-R Int : 156 ms QRS Dur : 078 ms QT Int : 424 ms P-R-T Axes : 047 024 038 degrees QTc Int : 440 ms Normal sinus rhythm Possible Left atrial enlargement Borderline ECG Confirmed by SRINATH MANDUJANO DO ([id number]), editorial project manager LORNA HAYS ([id number]) on 08/20/2018 12:32:37 PM Referred By: Confirmed By:SRINATH MANDUJANO DO
== END 2018-08-20 00:03 | disposition home or self-care (01) ==
LOC: ERS 21:19
DX: R55 Syncope and collapse (principal); R19.7 Diarrhea, unspecified; E11.9 Type 2 diabetes mellitus without complications; I10 Essential (primary) hypertension; F41.9 Anxiety disorder, unspecified; F32.9 Major depressive disorder, single episode, unspecified; I48.91 Unspecified atrial fibrillation; Z87.442 Personal history of urinary calculi
CPT/HCPCS: 36415; 70450; 71045; 72125; 80053; 81003; 81015; 84443; 84484; 85025; 87086; 93005; 96360

== ENCOUNTER 2018-09-10 10:02 | Outpatient (CLI) | payer MEDICARE ==
--- NOTE | 2018-09-10 11:27 | RAD ---
TWO VIEWS OF THE CHEST: COMPARISON: 07/01/2017. HISTORY: Dyspnea. FINDINGS: Two views of the chest show normal sized cardiomediastinal silhouette. There is no evidence of consol idation, mass, or pleural effusion. Hardware is seen in the cervical spine. IMPRESSION: No evidence of acute cardiopulmonary disease. POS: [facility]
== END 2018-09-10 10:03 | disposition home or self-care (01) ==
LOC: RAD 10:02
PROVIDERS: ATTEND Internal Medicine Critical Care Medicine
DX: R06.00 Dyspnea, unspecified (principal)
CPT/HCPCS: 71046

== ENCOUNTER 2019-07-18 09:15 | Outpatient (CLI) | payer MEDICARE ==
--- NOTE | 2019-07-19 10:57 | NM ---
RADIOIODINE THYROID UPTAKE AND SCAN: HISTORY: Benign neoplasm of thyroid gland RADIOPHARMACEUTICAL: 1231 uCi [id number] administered orally FINDINGS: Correlation is made with the ultrasound of 01/25/2019. Planar anterior and both anterior oblique images of the thyroid gland were obtained. There is inhomogeneous tracer distribution to both lobes of the thyroid gland with a relatively heart a focal uptake in the inferior pole of the left lobe. The 24-hour uptake measures 53 % (normal 10-30%). IMPRESSION: Multinodular goiter with increased 24 hour uptake.
== END 2019-07-18 09:16 | disposition home or self-care (01) ==
LOC: NM 09:15
PROVIDERS: ATTEND Internal Medicine Endocrinology, Diabetes & Metabolism
DX: D34 Benign neoplasm of thyroid gland (principal); E05.80 Other thyrotoxicosis without thyrotoxic crisis or storm; E04.2 Nontoxic multinodular goiter
CPT/HCPCS: 78014; A9516

== ENCOUNTER 2021-09-10 14:40 | Outpatient (CLI) | payer MEDICARE | END 2021-09-10 14:41 | disposition home or self-care (01) | LOC: BICMAMMO 14:40 | PROVIDERS: ATTEND Family Medicine | DX: N63.0 Unspecified lump in unspecified breast (principal); R92.8 Other abnormal and inconclusive findings on diagnostic imaging of breast | CPT/HCPCS: 76642; 77066; G0279 ==

== ENCOUNTER 2022-05-28 14:11 | Outpatient (CLI) | payer MEDICARE | END 2022-05-28 14:12 | disposition home or self-care (01) | LOC: BICRAD 14:11 | PROVIDERS: ATTEND Chiropractor | DX: M47.892 Other spondylosis, cervical region (principal); R29.890 Loss of height | CPT/HCPCS: 72040 ==

== ENCOUNTER 2023-08-21 14:24 | Outpatient (CLI) | payer MEDICARE | END 2023-08-21 14:25 | disposition home or self-care (01) | LOC: BICMAMMO 14:24 | PROVIDERS: ATTEND Family Medicine | DX: R92.8 Other abnormal and inconclusive findings on diagnostic imaging of breast (principal) | CPT/HCPCS: 76642; 77066; G0279 ==

== ENCOUNTER 2024-06-01 17:25 | Emergency (ER) | payer MEDICARE ==
[2024-06-01 18:00] LABS: Bilirubin Negative (Negative); Blood, Urine 3+ (Negative); CAUTI Indications for Culture Acute Hematuria; Clarity Clear (Clear); Glucose, Urine (Dipstick) Greater than 1000 mg/dL (Negative); Ketone, Urine Negative (Negative); Leukocyte 75 Leu/uL (Negative); Nitrite Negative (Negative); Protein, Urine (Dipstick) Negative (Neg-Trace); Specific Gravity, Urine 1.022 (1.002-1.036); Squamous Epithelial 0-3 HPF (0-3); Urobilinogen Normal mg/dL (Less than 2); pH, Urine 6.5 (5.0-9.0)
[2024-06-01 18:10] LABS: Bacteria/HPF Rare-Few HPF (None Seen); RBC/HPF 21-50 HPF (0-3); WBC/HPF 0-3 HPF (0-3)
[2024-06-01 18:11] LABS: Urine Culture Reflex No No
[2024-06-01 18:44] LABS: #Basophils 0.06 10x3/uL (0.0-0.2); %Basophils 0.5 % (0.0-1.0); %Eosinophils 0.6 % (0.0-10.0); %Lymphocytes 30.8 % (21.0-51.0); %Neutrophils 60.7 % (42.0-75.0); Hematocrit 45.5 % (36.0-47.0); Hemoglobin 15.7 g/dL (12.0-16.0); Mean Corpuscular HGB CONC 34.5 g/dL (32.0-36.0); Mean Corpuscular Hemoglobin 32.2 pg (27.0-31.0); Mean Corpuscular Volume 93.2 fL (78.0-98.0); Mean Platelet Volume 10.5 fL (7.4-10.4); Platelet Count 358 10x3/uL (130-400); RBC Distribution Width 13.2 % (11.5-14.5); Red Blood Cell (RBC) Count 4.88 mill/uL (4.20-5.40)
[2024-06-01 19:06] LABS: ALT (SGPT) 25 U/L (8-55); AST (SGOT) 26 U/L (5-34); Albumin 3.9 g/dL (3.4-4.8); Alkaline Phosphatase 119 U/L (40-110); Anion Gap 18 mmol/L (10-20); BUN (Urea Nitrogen) 17 mg/dL (9.8-20.1); Bilirubin, Total 0.3 mg/dL (0.2-1.2); Calc. Creatinine Clearance 0 mL/min (70-130); Calcium 10.4 mg/dL (7.8-10.44); Carbon Dioxide 22 mmol/L (23-31); Chloride 101 mmol/L (98-107); Estimated GFR 61; Globulin 4.4 g/dL (2.4-3.5); Glucose 140 mg/dL (80-115); Potassium 3.7 mmol/L (3.5-5.1); Protein, Total 8.3 g/dL (5.8-8.1); Sodium 137 mmol/L (136-145)
== END 2024-06-01 19:39 | disposition home or self-care (01) ==
LOC: ERS 17:25
DX: N13.2 Hydronephrosis with renal and ureteral calculous obstruction (principal); I10 Essential (primary) hypertension; E11.9 Type 2 diabetes mellitus without complications; F17.210 Nicotine dependence, cigarettes, uncomplicated; Z79.899 Other long term (current) drug therapy
CPT/HCPCS: 36415; 74176; 80053; 81001; 85025; 87086

== ENCOUNTER 2025-01-23 23:55 | Emergency (ER) | payer MEDICARE ==
[2025-01-24 01:15] LABS: #Basophils 0.05 10x3/uL (0.0-0.2); #Eosinophils 0.18 10x3/uL (0.0-0.7); #Monocytes 0.78 10x3/uL (0.11-0.59); #Neutrophils 6.28 10x3/uL (1.40-6.50); %Basophils 0.5 % (0.0-1.0); %Eosinophils 1.9 % (0.0-10.0); %Lymphocytes 22.4 % (21.0-51.0); %Monocytes 8.3 % (0.0-10.0); %Neutrophils 66.7 % (42.0-75.0); Hematocrit 38.5 % (36.0-47.0); Hemoglobin 12.4 g/dL (12.0-16.0); Mean Corpuscular Hemoglobin 31.3 pg (27.0-31.0); Mean Corpuscular Volume 97.2 fL (78.0-98.0); Platelet Count 254 10x3/uL (130-400); Red Blood Cell (RBC) Count 3.96 mill/uL (4.20-5.40); White Blood Cell (WBC) Count 9.42 10x3/uL (4.8-10.8)
[2025-01-24 02:16] LABS: ALT (SGPT) 12 U/L (Less than 34); AST (SGOT) 20 U/L (11-34); Albumin 3.1 g/dL (3.1-4.5); Alkaline Phosphatase 111 U/L (40-110); Anion Gap 17 mmol/L (10-20); BUN (Urea Nitrogen) 16 mg/dL (9.8-20.1); Bilirubin, Total 0.3 mg/dL (0.3-1.2); Calc. Creatinine Clearance 0 mL/min (70-130); Calcium 8.6 mg/dL (7.8-10.44); Carbon Dioxide 18 mmol/L (23-31); Chloride 107 mmol/L (98-107); Globulin 3.0 g/dL (2.4-3.5); Glucose 218 mg/dL (80-115); Lipase 67 U/L (8-78); Magnesium 2.0 mg/dL (1.6-2.6); Potassium 3.5 mmol/L (3.5-5.1); Sodium 138 mmol/L (136-145)
[2025-01-24] MEDS ORDERED: Ibuprofen 800 MG TAB ONE (05:15)
== END 2025-01-24 05:51 | disposition short-term general hospital (02) ==
LOC: ERS 23:55
DX: R07.2 Precordial pain (principal); I10 Essential (primary) hypertension; E11.9 Type 2 diabetes mellitus without complications; F17.210 Nicotine dependence, cigarettes, uncomplicated; Z55.6 Problems related to health literacy; Z79.899 Other long term (current) drug therapy
CPT/HCPCS: 36415; 71045; 80053; 83690; 83735; 83880; 84484; 85025; 93005